=== PATIENT | female | born 1960 | race Caucasian/White ===

== ENCOUNTER → 2021-11-13 11:16 | Outpatient (CLI) | payer OTHER, SELFPAY | PROVIDERS: PCP Family Medicine; Visit Provider Ophthalmology | DX: Z01.812 Encounter for preprocedural laboratory examination (principal); Z20.822 Contact with and (suspected) exposure to COVID-19 | CPT/HCPCS: C9803; U0003; U0005 ==

== ENCOUNTER 2021-11-16 09:08 | Day surgery (SDC) | payer OTHER, SELFPAY ==
[2021-11-16] VITALS (8 sets, daily range): BP systolic 89–125; BP diastolic 47–77; PULSE 50–57; RESP 16; TEMP 36.6; O2SAT 96–100
== END 2021-11-16 11:40 | disposition home or self-care (01) ==
LOC: OR 09:12
PROVIDERS: PCP Family Medicine; Visit Provider Ophthalmology
PROC: (CPT 66982; principal; 2021-11-16 12:00)
DX: H25.811 Combined forms of age-related cataract, right eye (principal)
CPT/HCPCS: 66982; V2632

== ENCOUNTER → 2021-11-27 11:29 | Outpatient (CLI) | payer OTHER, SELFPAY | PROVIDERS: PCP Family Medicine; Visit Provider Ophthalmology | DX: Z01.812 Encounter for preprocedural laboratory examination (principal); Z20.822 Contact with and (suspected) exposure to COVID-19 | CPT/HCPCS: C9803; U0003; U0005 ==

== ENCOUNTER → 2021-12-27 07:00 | Outpatient (CLI) | payer OTHER, SELFPAY ==
[2021-12-27 20:54] LABS: Alanine Aminotransferase 14 U/L (12-78); Albumin Level 3.8 g/dl (3.5-5.0); Albumin/Globulin Ratio 1.5 (1.1-1.8); Alkaline Phosphatase 107 U/L (38-126); Anion Gap 16.9 mEq/L (5-15); Aspartate Amino Transferase 25 U/L (14-36); Blood Urea Nitrogen 9 mg/dl (7-17); Calcium 8.7 mg/dl (8.4-10.2); Carbon Dioxide 24 mmol/L (22.0-30.0); Chloride 101 mmol/L (98-107); Chol/HDL Ratio 5.1 (1-3.5); Cholesterol 255 mg/dl (140-200); Estimated Glomerular Filt Rate 73 ml/min (>60); GFR (African American) 89 ML/MIN (>60); Globulin 2.5 g/dL (1.3-3.2); Glucose 123 mg/dl (74-100); HDL Cholesterol 50 mg/dl (40-60); Potassium 3.9 mmoL/L (3.5-5.1); Sodium 138 mmol/L (136-145); Total Protein,Serum 6.3 g/dl (6.3-8.2); Triglycerides 354 mg/dl (30-150); VLDL Cholesterol 71 mg/dL (0-40)
[2021-12-27 21:01] LABS: Bilirubin,Total < 0.1 mg/dl (0.2-1.3)
[2021-12-27 21:10] LABS: Direct LDL Cholesterol 138.84 mg/dL (100-129)
[2021-12-27 21:35] LABS: Thyroid Stimulating Hormone 0.63 uIU/mL (0.465-4.68)
== END ==
PROVIDERS: PCP Family Medicine; Visit Provider Family Medicine
DX: E78.5 Hyperlipidemia, unspecified (principal); I10 Essential (primary) hypertension; E55.9 Vitamin D deficiency, unspecified
CPT/HCPCS: 80053; 80061; 82306; 84443

== ENCOUNTER → 2022-01-03 11:09 | Outpatient (CLI) | payer OTHER, SELFPAY | PROVIDERS: PCP Family Medicine; Visit Provider Ophthalmology | DX: Z01.812 Encounter for preprocedural laboratory examination (principal); Z20.822 Contact with and (suspected) exposure to COVID-19; H25.012 Cortical age-related cataract, left eye | CPT/HCPCS: C9803; U0003; U0005 ==

== ENCOUNTER 2022-01-04 10:07 | Day surgery (SDC) | payer OTHER, SELFPAY ==
[2021-11-24 10:49] VITALS: BMI 31.7
[2022-01-04] VITALS (7 sets, daily range): BP systolic 107–166; BP diastolic 62–80; PULSE 53–67; RESP 16–18; TEMP 36.3–36.4; O2SAT 97–100
== END 2022-01-04 13:18 | disposition home or self-care (01) ==
LOC: OR 10:09
PROVIDERS: PCP Family Medicine; Visit Provider Ophthalmology
PROC: (CPT 66984; principal; 2022-01-04 14:30)
DX: H26.9 Unspecified cataract (principal); Z79.899 Other long term (current) drug therapy
CPT/HCPCS: 66984; V2632

== ENCOUNTER → 2022-01-05 13:02 | Outpatient (CLI) | payer OTHER, SELFPAY ==
--- NOTE | 2022-01-05 13:06 | MM_ITS ---
PROCEDURE INFORMATION: Exam: MG Bilateral Screening 3D Mammography Exam date and time: 01/05/2022 1:00 PM Age: 61 years old Clinical indication: Screening examination TECHNIQUE: Imaging protocol: Bilateral Screening tomosynthesis and 2D mammography including computer-aided detection (CAD) when performed. COMPARISON: MG MAMMOGRAM SCREENING BILAT 08/07/2020 8:36 AM FINDINGS: MAMMOGRAPHY: Breast composition: The breasts are almost entirely fatty. Mass: None. Architectural distortion: None. Calcifications: No suspicious calcifications. Asymmetric density: None. Skin thickening: None. Axillary adenopathy: None. IMPRESSION: No mammographic evidence of malignancy. Annual screening is recommended unless otherwise clinically indicated. ASSESSMENT: BI-RADS Category 1: Negative
== END ==
PROVIDERS: PCP Family Medicine; Visit Provider Family Medicine
DX: Z12.31 Encounter for screening mammogram for malignant neoplasm of breast (principal)
CPT/HCPCS: 77063; 77067

== ENCOUNTER → 2022-02-16 12:10 | Outpatient (CLI) | payer OTHER, SELFPAY ==
[2022-02-16 18:49] LABS: Adenovirus,PCR Not Detected (NotDetected); Bordetella Pertussis Not Detected (NotDetected); Chlamydophila Pneumoniae, PCR Not Detected (NotDetected); Coronavirus 19, PCR Not Detected (NotDetected); Coronavirus 229E Not Detected (NotDetected); Coronavirus NL63 Not Detected (NotDetected); Coronavirus OC43 Not Detected (NotDetected); Coronovirus HKU1,PCR Not Detected (NotDetected); Human Metapneumovirus Not Detected (NotDetected); Influenza A, PCR Not Detected (NotDetected); Influenza AH1, 2009 Not Detected (NotDetected); Influenza AH1, PCR Not Detected (NotDetected); Influenza AH3,PCR Not Detected (NotDetected); Influenza B, PCR Not Detected (NotDetected); Mycoplasma Pneumoniae, PCR Not Detected (NotDetected); Parainfluenza 1, PCR Not Detected (NotDetected); Parainfluenza 2, PCR Not Detected (NotDetected); Parainfluenza 3, PCR Not Detected (NotDetected); Parainfluenza 4, PCR Not Detected (NotDetected); Respiratory Syncytial Virus Not Detected (NotDetected); Rhinovirus/Enterovirus Not Detected (NotDetected)
== END ==
PROVIDERS: PCP Nurse Practitioner; Visit Provider Nurse Practitioner
DX: J06.9 Acute upper respiratory infection, unspecified (principal)
CPT/HCPCS: 87581; 87632; 87798; C9803; U0003; U0005

== ENCOUNTER → 2022-04-08 12:02 | Outpatient (CLI) | payer OTHER, SELFPAY ==
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
== END ==
PROVIDERS: PCP Nurse Practitioner; Visit Provider Nurse Practitioner
DX: R07.81 Pleurodynia (principal); M25.512 Pain in left shoulder; V89.2XXA Person injured in unspecified motor-vehicle accident, traffic, initial encounter
CPT/HCPCS: 71101; 73030

== ENCOUNTER → 2022-07-20 09:32 | Outpatient (CLI) | payer OTHER, SELFPAY ==
--- NOTE | 2022-07-20 09:40 | XR_ITS ---
FINAL REPORT CLINICAL HISTORY: shoulder pain FINDINGS: Right shoulder Four views were obtained. There is no acute fracture or dislocation. There are mild degenerative changes of the acromioclavicular and glenohumeral joints. No soft tissue abnormality is identified. IMPRESSION: Mild degenerative changes. Reviewed, Interpreted and Dictated by Topher Franco III, MD Transcribed by Ana Dewey Authenticated and [facility]
== END ==
PROVIDERS: PCP Nurse Practitioner; Visit Provider Physician Assistant Surgical
DX: M25.511 Pain in right shoulder (principal)
CPT/HCPCS: 73030

== ENCOUNTER 2022-07-20 11:43 | Outpatient (RCR) | payer OTHER, SELFPAY | END 2022-07-20 13:00 | disposition home or self-care (01) | LOC: OT 11:43 | PROVIDERS: Visit Provider Orthopaedic Surgery | DX: G56.01 Carpal tunnel syndrome, right upper limb (principal) | CPT/HCPCS: 97763 ==

== ENCOUNTER → 2022-07-29 08:00 | Outpatient (CLI) | payer OTHER, SELFPAY ==
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
--- NOTE | 2022-07-29 08:08 | IR_ITS ---
FINAL REPORT CLINICAL HISTORY: Shoulder pain, ft 0:31 FINDINGS: RIGHT SHOULDER INJECTION FOR MRI ARTHROGRAM HISTORY: . Right shoulder pain. PROCEDURE: After informed consent was obtained, a time-out was performed. Utilizing local anesthesia and sterile technique, with direct fluoroscopic guidance, access to the joint was obtained . A small amount of contrast was injected to confirm needle tip location. Additional gadolinium contrast was injected. IMPRESSION: Status post injection for MRI arthrogram without immediate complication. Please see MRI report. FLUOROSCOPY TIME: 31 seconds. 2 radiographs were obtained. Films reviewed , interpreted and dictated by Dr. Franco. Transcribed by Sae Jc PA-C. Reviewed, Interpreted and Dictated by Topher Franco III, MD Transcribed by DAYANARA Lang Authenticated and . [facility]
== END ==
PROVIDERS: PCP Nurse Practitioner; Visit Provider Physician Assistant Surgical
DX: M25.511 Pain in right shoulder (principal)
CPT/HCPCS: 73040; 73222; A9576; Q9967

== ENCOUNTER → 2022-08-17 10:35 | Outpatient (CLI) | payer OTHER, SELFPAY ==
--- NOTE | 2022-08-17 10:45 | ECG_ITS ---
APPROVED REPORT Exam: Resting ECG HR:64 bpm ECG Measurements Heart Rate 64 AXES RI 170 P 20 QRSd 94 QRS 10 QT 399 T -1 QTc 409 Conclusion SINUS RHYTHM NORMAL ECG UNCONFIRMED REPORT Electronically signed by : Julien Conroy MD 08/17/2022 21:15:29
--- NOTE | 2022-08-17 11:00 | XR_ITS ---
FINAL REPORT CLINICAL HISTORY: pre op for upcoming rt shoulder sx. Hx of high cholesterol. Sx to repair supraspinatus tendon and labral degeneration. Patient unable to fully raise right arm for lateral image. COMPARISON: 04/08/2022 FINDINGS: There is no evidence of effusion or other pleural disease. The mediastinum has a normal appearance. The cardiac silhouette is unremarkable. IMPRESSION: Unremarkable chest exam. Reviewed, Interpreted and Dictated by Shantanu Boles MD Transcribed by Ana Dewey Authenticated and [facility]
[2022-08-17 11:33] LABS: Basophils % 0.3 % (0.1-2.0); Eosinophils # 0.3 K/mm3 (0.0-0.4); Hematocrit 37.3 % (37.0-47.0); Hemoglobin 12.2 g/dL (12.2-16.2); Lymphocytes # 1.2 K/mm3 (0.7-4.5); Lymphocytes % 13.5 % (10-50); Mean Corpuscular HGB Conc 32.8 g/dL (31.8-35.4); Mean Corpuscular Hemoglobin 29.2 pg (27.0-31.2); Mean Corpuscular Volume 89.1 fl (81-99); Mean Platelet Volume 7.1 fl (7.4-10.4); Monocytes # 0.5 K/mm3 (0.1-1.0); Monocytes % 5.3 % (1.7-9.3); Neutrophils # 6.8 K/mm3 (1.8-7.8); Neutrophils % 77.9 % (37.0-80.0); Platelet Count 199 K/mm3 (142-424); Red Blood Count 4.19 M/mm3 (4.20-5.40); Red Cell Distribution Width 14.2 % (11.5-17.5); White Blood Count 8.8 K/mm3 (4.8-10.8)
[2022-08-17 11:57] LABS: Alanine Aminotransferase 17 U/L (12-78); Albumin Level 3.4 g/dl (3.5-5.0); Albumin/Globulin Ratio 1.5 (1.1-1.8); Alkaline Phosphatase 82 U/L (38-126); Anion Gap 14.1 mEq/L (5-15); Aspartate Amino Transferase 26 U/L (14-36); Bilirubin,Total 0.6 mg/dl (0.2-1.3); Blood Urea Nitrogen 9 mg/dl (7-17); Calcium 8.4 mg/dl (8.4-10.2); Carbon Dioxide 30 mmol/L (22.0-30.0); Chloride 98 mmol/L (98-107); Estimated Glomerular Filt Rate 73 ml/min (>60); GFR (African American) 89 ML/MIN (>60); Globulin 2.3 g/dL (1.3-3.2); Glucose 76 mg/dl (74-100); Potassium 4.1 mmoL/L (3.5-5.1); Sodium 138 mmol/L (136-145); Total Protein,Serum 5.7 g/dl (6.3-8.2)
== END ==
PROVIDERS: PCP Nurse Practitioner; Visit Provider Orthopaedic Surgery
DX: Z01.818 Encounter for other preprocedural examination (principal); M25.511 Pain in right shoulder
CPT/HCPCS: 36415; 71046; 80053; 85025; 93005

== ENCOUNTER 2022-08-22 10:06 | Day surgery (SDC) | payer OTHER, SELFPAY ==
[2022-08-19 16:56] VITALS: BMI 35.4
[2022-08-22] VITALS (10 sets, daily range): BP systolic 110–153; BP diastolic 53–96; PULSE 57–71; RESP 14–18; TEMP 36.1–43; O2SAT 92–96
--- NOTE | 2022-08-22 12:32 | EXP.ANES.CKL ---
[facility] Disclaimer: The information contained in this section may have been updated after the patient was seen, as this information can be updated by other users. Medical History Anxiety Closed traumatic nondisplaced fracture of rib of left side with routine healing Depression Head ache History of cataract Surgical History History of bariatric surgery History of History of cataract removal with insertion of prosthetic lens History of cholecystectomy History of tubal ligation Family History Other Cancer Coronary artery disease Heart attack Hyperlipidemia Hypertension Social History Smoking Status: Never smoker second hand exposure: Yes alcohol intake: former substance use type: crack/cocaine current occupational status: employed Travel in the last 8 weeks: None household members: friend(s) and other housing: house current occupational exposures/hazards: No caffeine: Yes [facility] Anesthesia Checklist Patient Identification Patient Identification: Arm Band Structural Data Admitted From: Home Planned Operative Procedure/s: Right Shoulder Arthroscopy, Rotator Cuff Repair Consent for Planned Operative Procedure(s) Verified: Yes Verified Documents: Surgical Consent and History and Physical NPO Status Verified Time NPO: 00:00 Additional verifications Anesthesia Reactions: No Hx Blood Transfusions: No Blood Transfusion Reaction: No Airway Assessment C-Spine Mobility Assessed: Yes TMJ Mobility Assessed: Yes Dentition: Good Dentition Neurological Assessment Level of Consciousness: Awake and Alert Anesthesia Plan Anesthesia Risk discussed: Yes Anesthesia Plan: Verified ASA Class: III Anesthesia Type: General w/block (Right Interscalene Nerve Block. Risks/benefits explained. Pt verbalized understanding)
--- NOTE | 2022-08-22 13:48 | P.OP_ITS ---
Date of procedure: 08/22/22 Pre-op Diagnosis:: Right shoulder partial-thickness rotator cuff tear impingement syndrome Post-op Diagnosis:: Right shoulder partial-thickness rotator cuff tear and impingement syndrome with degenerative fraying anterior labrum. Loose faiza cartilage humeral head. Intra-articular loose body cartilage humeral head. Procedure performed:: 1. Right shoulder arthroscopy with extensive debridement anterior labrum humeral cartilage and partial-thickness rotator cuff tear 2. Right shoulder arthroscopy with subacromial decompression Surgeon:: Mo Thompson DO Anesthesia: GETA and regional Estimated blood loss (mL): 0 Operative findings:: Partial-thickness rotator cuff tear impingement degenerative anterior labral fraying and tear with intra-articular loose body humeral cartilage and loose flap humeral cartilage. Operative note:: Patient was identified preoperatively. Right shoulder was marked with a yes and my initials. Underwent a block with anesthesia. Transferred operative suite. Placed upon the operating bed. General anesthesia administered airway secured. Then placed in a lateral position with a beanbag with all bony prominences well- padded. Right arm was placed in the arm wetzel and prepped and draped in normal sterile fashion. Once prepped and draped final operative timeout performed to identify proper patient procedure and extremity. Everyone involved the case agreed. No counter indications to beginning. Did receive preoperative antibiotics. Marking pen was used to skyler the bony landmarks of the shoulder and standard portal sites. Skin F was used incise posterior viewing portal and blunt with trocar was placed in the glenohumeral joint. This was exchanged with a camera. I pinned attention directly to the anterior aspect of the shoulder where the anterior working portal was made just above the subscapularis tendon this was exchanged with a purple working cannula. I extensively probed the intra- articular aspect of the shoulder. The biceps anchor was intact. The biceps itself was intact. There is anterior tearing and fraying of the labrum which was degenerative in nature. This was debrided with a sucker shaver to stable rim. There is also evidence of intra-articular loose body which was removed and debrided through the sucker shaver and there was a small area of fraying cartilage on the humeral head cartilage which was debrided to remove the loose faiza cartilage on the humeral head. I interrogated the undersurface of the rotator cuff that showed no full-thickness tearing. Placed a water bubble and the intra-articular aspect of the shoulder and brought the attention to the subacromial space. Upon entering the subacromial space prior to placing suction there was no return on water from the water communicating from the intra-articular aspect into the subacromial space. Within the subacromial space there was significant bursitis downsloping of the acromion as well. 5.5 mm barrel bur was used in a standard fashion to plane the acromion to perform subacromial decompression. Once this was complete attention was brought back to the rotator cuff. Rotator cuff was then interrogated and probed there is no full-thickness component of the rotator cuff tear there was fraying of the rotator cuff which was debrided with a sucker shaver. Once this was complete no further pathology was seen. Camera was removed the joint was drained. Skin was closed with nylon stitches sterile dressing placed placed in patient placed in a sling awakened from anesthesia taken recovery stable condition. Condition: stable Disposition: PACU Complications:: None apparent
--- NOTE | 2022-08-22 14:07 | EXP.ANES.I ---
[facility] Anesthesia Record Part I Anesthesia Record I Intake, IV Amount: 1,000 Estimated blood loss (mL): 20 Urine output (mL): 0 Blood Products used (#): none Blood Pressure: 143/87 SaO2: 94 Pulse Rate: 70 Respiratory Rate: 14 Temperature: 97.5 F Patient is:: Drowsy and Stable Stable to PACU at:: 13:58
--- NOTE | 2022-08-24 08:29 | P.PNANES_ITS ---
[facility] Anesthesia Record Part II Anesthesia Record Part II Discharge Time: 14:28 Destination: Surgical Day Care (OP Surgery) PACU nurse assessment reviewed?: Yes Patient Condition:: Good Anesthesia Complications:: None Swallowing reflex intact?: Yes Cyanosis?: No Blood Pressure: 127/53 Pulse Rate: 68 Temperature: 97 F Mental Status: Alert & Oriented Pain level:: 0 Nausea and/or vomitting:: None Intake, IV Amount: 0
[2022-08-24 08:30] VITALS: BP 127/53; PULSE 68; TEMP 36.1
== END 2022-08-22 15:02 | disposition home or self-care (01) ==
PROVIDERS: PCP Nurse Practitioner; Visit Provider Orthopaedic Surgery
PROC: (CPT 29827; principal; 2022-08-22 11:45)
DX: M75.111 Incomplete rotator cuff tear or rupture of right shoulder, not specified as traumatic (principal); M75.41 Impingement syndrome of right shoulder; Z79.899 Other long term (current) drug therapy
CPT/HCPCS: 29827; 29826; 96374; J2405

== ENCOUNTER 2022-10-07 10:00 | Outpatient (RCR) | payer OTHER, SELFPAY ==
--- NOTE | 2022-09-14 10:08 | HMH.OTOPEV ---
OT Inpatient Evaluation Rehab OT Outpatient Eval Start: 09/14/22 09:51 Freq: Status: Active Protocol: Document 09/14/22 09:52 ADWOAMARIA LUISA (Rec: 09/14/22 10:05 CRISTINE [id number]) E-signed By Quyen Cueto, OT Outpatient Therapy Subjective History Subjective History 62 year old female referred to skilled OP OT services for R shld RCR: Post-op dx: right shld partial-thickness rotator cuff tear and impingement syndrome with degerative fraying anterior labrum. [place] faiza cartilage humeral head. Intra-articular loose body cartilage humeral head. Procedure performed: Right shld arthroscopy with extensive debridement anterior labrum humeral cartilage and partial-thickness rotator cuff tear. Right shld arthroscopy with subacromial decompression . Patient had operation on with being 3 weeks out this week. Chief Complaint Pain,Weakness Symptom Type Ache Symptoms Relieved By Nothing Symptoms Aggravated By Physical Activity Prior Functional Limitations None Current Functional Limitations Reaching,Lifting,Recreation Activity Symptom Description Constant and Continuous Level of pain today (0-10) 0 Pain scale - at its best (0-10) 0 Pain scale - at its worst (0-10) 5 Shoulder/Elbow Eval Shoulder Objective Measurements Shoulder ROM Right Shoulder Abduction Active Range of 50 Motion (degrees) Shoulder Flexion Active Range of Motion 90 (degrees) Query Text: Shoulder External Rotation Active Range 0 of Motion (degrees) Shoulder Internal Rotation Active Range 0 of Motion (degrees) Shoulder MMT Shoulder Abduction Strength Grade 3- Fair- Shoulder Extension Strength Grade 3- Fair- Shoulder Flexion Strength Grade 3- Fair- Shoulder Horizontal Abduction Strength 3- Fair- Grade Shoulder Horizontal Adduction Strength 3- Fair- Grade Infraspinatus/Teres Minor Strength Grade 3- Fair- Shoulder External Rotation Strength 3- Fair- Grade Shoulder Internal Rotation Strength 3- Fair- Grade Elbow Objective Measurements OT Outpatient Assessment
== END 2022-10-07 10:05 | disposition home or self-care (01) ==
LOC: OT 10:00
PROVIDERS: PCP Nurse Practitioner; Visit Provider Orthopaedic Surgery
DX: M75.101 Unspecified rotator cuff tear or rupture of right shoulder, not specified as traumatic (principal); M25.511 Pain in right shoulder
CPT/HCPCS: 97010; 97014; 97110; 97140; 97165; 97530; G0283

== ENCOUNTER → 2022-10-13 12:20 | Outpatient (CLI) | payer OTHER, SELFPAY ==
[2022-10-13 18:48] LABS: Alanine Aminotransferase 22 U/L (12-78); Albumin Level 4.3 g/dl (3.5-5.0); Albumin/Globulin Ratio 1.6 (1.1-1.8); Alkaline Phosphatase 97 U/L (38-126); Anion Gap 12.5 mEq/L (5-15); Aspartate Amino Transferase 38 U/L (14-36); Bilirubin,Total 0.7 mg/dl (0.2-1.3); Blood Urea Nitrogen 8 mg/dl (7-17); Calcium 8.9 mg/dl (8.4-10.2); Carbon Dioxide 28 mmol/L (22.0-30.0); Chloride 106 mmol/L (98-107); Chol/HDL Ratio 2.5 (1-3.5); Cholesterol 135 mg/dl (140-200); Estimated Glomerular Filt Rate 57 ml/min (>60); GFR (African American) 68 ML/MIN (>60); Globulin 2.7 g/dL (1.3-3.2); Glucose 90 mg/dl (74-100); HDL Cholesterol 53 mg/dl (40-60); Potassium 4.5 mmoL/L (3.5-5.1); Sodium 142 mmol/L (136-145); Triglycerides 106 mg/dl (30-150); VLDL Cholesterol 21 mg/dL (0-40)
[2022-10-13 18:52] LABS: Microalbumin/Creatinine Ratio 5.9
[2022-10-13 18:56] LABS: Creatinine,Urine Random 282 mg/dL (Not Estab.)
[2022-10-13 18:59] LABS: Direct LDL Cholesterol 66.48 mg/dL (100-129)
[2022-10-13 19:05] LABS: 25-OH Vitamin D, Total 17.7 ng/mL (30-100)
[2022-10-13 19:37] LABS: Vitamin B12 273 pg/mL (239-931)
== END ==
PROVIDERS: PCP Nurse Practitioner; Visit Provider Nurse Practitioner
DX: E78.5 Hyperlipidemia, unspecified (principal); E55.9 Vitamin D deficiency, unspecified; R77.0 Abnormality of albumin
CPT/HCPCS: 80053; 80061; 82043; 82306; 82570; 82607

== ENCOUNTER → 2022-11-10 23:33 | Outpatient (CLI) | payer OTHER, SELFPAY | PROVIDERS: PCP Nurse Practitioner; Visit Provider Nurse Practitioner | DX: Z09 Encounter for follow-up examination after completed treatment for conditions other than malignant neoplasm (principal); N39.0 Urinary tract infection, site not specified; B96.1 Klebsiella pneumoniae [K. pneumoniae] as the cause of diseases classified elsewhere | CPT/HCPCS: 87086; 87088; 87186 ==

== ENCOUNTER → 2022-12-07 15:30 | Outpatient (CLI) | payer OTHER, SELFPAY ==
[2022-12-07 16:33] LABS: Erythrocyte Sedimentation Rate QNS mm/hr (0-30)
[2022-12-07 17:38] LABS: Thyroid Stimulating Hormone 0.78 uIU/mL (0.465-4.68)
[2022-12-07 18:31] LABS: Vitamin B12 947 pg/mL (239-931)
[2022-12-09 07:12] LABS: HIV Screen 4th Generation wRfx Non Reactive (Non Reactive)
[2022-12-09 18:28] LABS: Antiparietal Cell Antibody 4.4 Units (0.0-20.0)
[2022-12-12 17:08] LABS: HBsAg Screen Negative (Negative); HCV Ab Reactive (Non Reactive); Hep A Ab, IGM Negative (Negative); Hep B Core Ab, IgM Negative (Negative)
[2022-12-14 16:13] LABS: Intrinsic Factor Abs, Serum 1.1 AU/mL (0.0-1.1)
== END ==
PROVIDERS: PCP Nurse Practitioner; Visit Provider Nurse Practitioner Family
DX: R42 Dizziness and giddiness (principal); F14.91 Cocaine use, unspecified, in remission; F19.91 Other psychoactive substance use, unspecified, in remission; H93.19 Tinnitus, unspecified ear; R26.89 Other abnormalities of gait and mobility; E66.9 Obesity, unspecified; Z68.36 Body mass index [BMI] 36.0-36.9, adult; R79.89 Other specified abnormal findings of blood chemistry; E53.8 Deficiency of other specified B group vitamins; Z11.4 Encounter for screening for human immunodeficiency virus [HIV]
CPT/HCPCS: 36415; 80074; 82607; 83516; 84443; 86140; 86340; 86703; G0432

== ENCOUNTER → 2022-12-21 12:24 | Outpatient (CLI) | payer OTHER, SELFPAY ==
--- NOTE | 2022-12-21 12:24 | MR_ITS ---
FINAL REPORT CLINICAL HISTORY: DIZZINESS, IMBALANCE COMPARISON: None FINDINGS: Multiple projection images of the neck arterial vasculature were obtained without contrast. The raw data images were also reviewed. This exam is severely limited by artifact. There are portions of the distal right common carotid artery and the left internal carotid artery which are not visualized. There is no significant stenosis in the visualized segments, but cannot exclude any areas of stenosis in the nonvisualized segments. The vertebral arteries appear patent bilaterally in the cervical portion, although once again there are segments that are very difficult to visualize adequately. IMPRESSION: This exam is extremely limited by artifact, and there are segments of major vessels that cannot be visualized, including portions of the distal right common carotid artery and the proximal left internal carotid artery. CT angiography might be helpful for further evaluation if clinically indicated. Reviewed, Interpreted and Dictated by Topher Franco III, MD Transcribed by Amanda Da Silva Authenticated and [facility]
--- NOTE | 2022-12-21 12:24 | MR_ITS ---
FINAL REPORT CLINICAL HISTORY: DIZZINESS, IMBALANCE COMPARISON: None FINDINGS: Multiple projection images of the brain arterial vasculature were obtained without contrast. The raw data images were also reviewed. There is severe degradation by motion artifact. Portions of the distal internal carotid arteries and vertebral arteries are not visualized. No gross abnormalities of the intracranial vessels are identified. IMPRESSION: Severe degradation by motion artifact as described above. Correlation with CT angiography of the intracranial vessels might be helpful if clinically indicated. Reviewed, Interpreted and Dictated by Topher Franco III, MD Transcribed by Amanda Da Silva Authenticated and [facility]
--- NOTE | 2022-12-21 12:24 | MR_ITS ---
FINAL REPORT CLINICAL HISTORY: DIZZINESS, IMBALANCE COMPARISON: None FINDINGS: Multiplanar MR imaging of the brain was performed without and with contrast. There is no evidence of intracranial hemorrhage or mass. No abnormal extra-axial fluid collection is seen. The ventricular size is within normal limits. There is no evidence of shift of the midline structures. The posterior fossa and brainstem have an unremarkable appearance. No area of abnormal restricted diffusion is identified. No abnormal contrast enhancement is seen. Normal major vessel vascular flow voids are noted. IMPRESSION: No acute intracranial abnormality identified. Reviewed, Interpreted and Dictated by Topher Franco III, MD Transcribed by Amanda Da Silva Authenticated and . [facility]
[2022-12-21 13:12] LABS: Blood Urea Nitrogen 7 mg/dl (7-17); Estimated Glomerular Filt Rate 64 ml/min (>60); GFR (African American) 77 ML/MIN (>60)
== END ==
PROVIDERS: PCP Nurse Practitioner; Visit Provider Nurse Practitioner Family
DX: R42 Dizziness and giddiness (principal); R26.89 Other abnormalities of gait and mobility; F14.91 Cocaine use, unspecified, in remission; H93.19 Tinnitus, unspecified ear
CPT/HCPCS: 36415; 70544; 70547; 70553; 82565; 84520; A9576

== ENCOUNTER → 2023-01-02 12:38 | Outpatient (CLI) | payer OTHER, SELFPAY ==
--- NOTE | 2023-01-02 13:20 | CA_ITS ---
FINAL REPORT TECHNIQUE: Soto scale, color and spectral doppler images of the bilateral carotid arteries were obtained. CLINICAL HISTORY: DIZZINESS,HTN COMPARISON: None FINDINGS: Peak systolic velocity in the right internal carotid artery is 78 cm/sec. The internal carotid to common carotid artery ratio is 1.46. There is no significant carotid artery stenosis and no significant plaque formation. The right vertebral artery is normal in direction. Peak systolic velocity in the left internal carotid artery is 96.6 cm/sec. The internal carotid to common carotid artery ratio is 1.9. There is no significant carotid artery stenosis and no significant plaque formation. The left vertebral artery is normal in direction. IMPRESSION: No ultrasound evidence of hemodynamically significant carotid artery stenosis. Normal peak systolic velocities and normal internal to common carotid artery ratios bilaterally. Antegrade flow in the vertebral arteries bilaterally. Reviewed, Interpreted and Dictated by Elissa Richard MD Transcribed by Amanda Da Silva Authenticated and [facility]
== END ==
PROVIDERS: PCP Nurse Practitioner; Visit Provider Nurse Practitioner
DX: R93.89 Abnormal findings on diagnostic imaging of other specified body structures (principal); R42 Dizziness and giddiness
CPT/HCPCS: 93880

== ENCOUNTER 2023-01-04 08:38 | Day surgery (SDC) | payer OTHER, SELFPAY ==
[2022-12-14 15:45] VITALS: BMI 36.1
[2023-01-04] VITALS (7 sets, daily range): BP systolic 77–169; BP diastolic 47–80; PULSE 48–67; RESP 14–18; TEMP 36.2–36.6; O2SAT 94–98
--- NOTE | 2023-01-04 10:01 | P.PNANES_ITS ---
[facility] Disclaimer: The information contained in this section may have been updated after the patient was seen, as this information can be updated by other users. Medical History Anxiety Closed traumatic nondisplaced fracture of rib of left side with routine healing Depression Fall at home Head ache History of cataract Hyperlipidemia Postmenopausal Screening for malignant neoplasm of breast Screening for osteoporosis Unsteady gait when walking Vitamin D deficiency Surgical History History of bariatric surgery History of History of cataract removal with insertion of prosthetic lens History of cholecystectomy History of tubal ligation Hx of shoulder surgery Family History Other Cancer Coronary artery disease Heart attack Hyperlipidemia Hypertension Social History Smoking Status: Never smoker second hand exposure: Yes alcohol intake: current substance use type: crack/cocaine current occupational status: unemployed Travel in the last 8 weeks: None household members: family housing: house lives independently: No current occupational exposures/hazards: No caffeine: Yes [facility] Anesthesia Checklist Patient Identification Patient Identification: Arm Band and Verbal (Name & ) Structural Data Admitted From: Home Planned Operative Procedure/s: EGD/Colonoscopy Consent for Planned Operative Procedure(s) Verified: Yes NPO Status Verified Time NPO: 00:00 Additional verifications Anesthesia Reactions: No Hx Blood Transfusions: No Blood Transfusion Reaction: No Airway Assessment Mallampati Score:: Class III C-Spine Mobility Assessed: Yes TMJ Mobility Assessed: Yes Dentition: Good Dentition Neurological Assessment Level of Consciousness: Awake Hx Seizures: No Numbness or tingling in extremities: No Anesthesia Plan Anesthesia Risk discussed: Yes Anesthesia Plan: Verified ASA Class: II Anesthesia Type: MAC
--- NOTE | 2023-01-04 10:48 | HMH.SCOPE ---
Procedure: Date: 01/04/23 Patient Date of :: 1960 Procedure Performed:: Colonoscopy Indications:: Colorectal cancer screening Performing Provider:: Colten Lee MD Referring Provider:: Mary Macdonald APRN Sedation:: See RN records Procedure:: After placing the patient in the left lateral decubitus position, the colonoscopy was gently inserted into the rectum and under direct visualization advanced to the cecum which was identified by transillumination in the right lower quadrant, identification of the ileocecal valve, appendiceal orifice, and cecal strap. Color, texture, mucosa, and anatomy of the colon were carefully examined with the scope. Findings:: Anal canal: normal Rectum: normal Sigmoid colon: Fair perparation Descending colon: Fair preparation Splenic flexure: normal Transverse colon: normal without polyps or inflammatory changes Hepatic flexure: Fair preparation Ascending colon: Fair to poor preparation Cecum: Fair to poor preparation Terminal ileum: not visualized Impression: Fair to poor bowel preparation in proximal colon Recommendations:: Recommend to repeat colonoscopy in 1 year with 2 days liquid diet Complications:: none Estimated blood obtained (mL): 0 Colonoscopy Component Colonoscopy Component Was a colonoscopy performed during today's procedure?: Yes Recommended follow up colonoscopy of at least 10 years?: Yes
--- NOTE | 2023-01-04 10:51 | HMH.SCOPE ---
Procedure: Date: 01/04/23 Patient Date of :: 1960 Procedure Performed:: EGD Indications:: Abdominal pain and GERD Performing Provider:: Colten Lee MD Referring Provider:: Mary Macdonald APRN Sedation:: See RN records Procedure:: After placing the patient in the left lateral decubitus position, the colonoscopy was gently inserted into the rectum and under direct visualization advanced to the cecum which was identified by transillumination in the right lower quadrant, identification of the ileocecal valve, appendiceal orifice, and cecal strap. Color, texture, mucosa, and anatomy of the colon were carefully examined with the scope. Findings:: Oropharynx: normal Esophagus: normal EG Junction: Measured at 36 cm Cardia: Hiatal hernia measuring approximately 7-8 cm in size Fundus: Retained food Body: Retained food. gastritis. Biopsies obtained Antrum: Linear erythema. Boipsies obtained Duodenal bulb: normal Duodenum (second and third portion): normal Impression: Hiatal hernia Gastritis Retained food in stomach Recommendations:: Await pathology results Consider 4 hour gastric emptying study Complications:: None Estimated blood obtained (mL): 0 Colonoscopy Component Colonoscopy Component Was a colonoscopy performed during today's procedure?: No
--- NOTE | 2023-01-04 11:23 | SUR.PHASEII ---
1049-pt arrived in postop with oral airway and simple mask on 3L/O2 1119-removed oral airway and mask- to RA- patient tolerated well
[2023-01-05 11:39] VITALS: BP 113/60; PULSE 47; RESP 18; O2SAT 97
[2023-01-05 11:45] VITALS: BP 115/62; PULSE 52; RESP 18; O2SAT 97
== END 2023-01-04 11:45 | disposition home health service (06) ==
PROVIDERS: PCP Nurse Practitioner; Visit Provider Internal Medicine
PROC: 0DJ08ZZ Inspection of Upper Intestinal Tract, Via Natural or Artificial Opening Endoscopic (ICD-10-PCS; CPT 43235; principal; 2023-01-04 10:00)
DX: Z12.11 Encounter for screening for malignant neoplasm of colon (principal); R10.9 Unspecified abdominal pain; K21.9 Gastro-esophageal reflux disease without esophagitis; K44.9 Diaphragmatic hernia without obstruction or gangrene; K29.50 Unspecified chronic gastritis without bleeding
CPT/HCPCS: 45378; 43239; J2704

== ENCOUNTER → 2023-01-05 23:09 | Outpatient (CLI) | payer OTHER, SELFPAY ==
[2023-01-05 18:27] LABS: Alanine Aminotransferase 18 U/L (12-78); Albumin Level 4.1 g/dl (3.5-5.0); Albumin/Globulin Ratio 1.4 (1.1-1.8); Alkaline Phosphatase 95 U/L (38-126); Anion Gap 10.1 mEq/L (5-15); Aspartate Amino Transferase 31 U/L (14-36); Bilirubin,Total 0.5 mg/dl (0.2-1.3); Blood Urea Nitrogen 10 mg/dl (7-17); Calcium 9.1 mg/dl (8.4-10.2); Carbon Dioxide 32 mmol/L (22.0-30.0); Chloride 102 mmol/L (98-107); Estimated Glomerular Filt Rate 57 ml/min (>60); GFR (African American) 68 ML/MIN (>60); Glucose 90 mg/dl (74-100); Potassium 4.1 mmoL/L (3.5-5.1); Sodium 140 mmol/L (136-145); Total Protein,Serum 7.1 g/dl (6.3-8.2)
[2023-01-05 18:44] LABS: 25-OH Vitamin D, Total 36.4 ng/mL (30-100)
[2023-01-05 19:16] LABS: Vitamin B12 815 pg/mL (239-931)
== END ==
PROVIDERS: PCP Nurse Practitioner; Visit Provider Nurse Practitioner
DX: E53.8 Deficiency of other specified B group vitamins (principal); E55.9 Vitamin D deficiency, unspecified; E78.5 Hyperlipidemia, unspecified; Z12.4 Encounter for screening for malignant neoplasm of cervix
CPT/HCPCS: 80053; 82306; 82607

== ENCOUNTER → 2023-01-09 08:03 | Outpatient (CLI) | payer OTHER, SELFPAY ==
--- NOTE | 2023-01-09 08:03 | XR_ITS ---
FINAL REPORT CLINICAL HISTORY: screening, postmenopausal FINDINGS: Using L1-4, the bone mineral density of the spine is 0.95 g/cm2, corresponding to T-score of -0.9. Using the left hip, the bone mineral density of the femoral neck is 0.824 g/cm2, corresponding to a T-score of -0 point. Using the right hip: The bone mineral density of the femoral neck is 0.755 g/cm2, corresponding to a T-score of -1.0. FRAX 10 year fracture risk is 10% for a hip fracture and 0.3% for a major osteoporotic fracture. IMPRESSION: Normal bone mineral density of the lumbar spine and left hip. Low bone density of the right hip. NOTE: T-score: Standard deviation compared with peak bone mass of young adult mean. *Following the recommendations of the International Society of Bone densitometry, classification of hip BMD is based on the lower of two T-scores; total hip or femoral neck. Reviewed, Interpreted and Dictated by Topher Franco III, MD Transcribed by Hodan Maravilla Authenticated and [facility]
--- NOTE | 2023-01-09 08:03 | MM_ITS ---
PROCEDURE INFORMATION: Exam: MG Bilateral Screening 3D Mammography Exam date and time: 01/09/2023 8:04 AM Age: 62 years old Clinical indication: Screening mammogram TECHNIQUE: Imaging protocol: Bilateral Screening tomosynthesis and 2D mammography including computer-aided detection (CAD) when performed. COMPARISON: 1. MG MM DIG SCREENING MAMM BI W/CAD 01/05/2022 1:00 PM 2. MG MAMMOGRAM SCREENING BILAT 08/07/2020 8:36 AM FINDINGS: MAMMOGRAPHY: Breast composition: There are scattered areas of fibroglandular density. Mass: None. Architectural distortion: No new or suspicious architectural distortion. Calcifications: No new or suspicious calcifications are present Asymmetric density: No new or suspicious asymmetric density is present Skin thickening: None. Axillary adenopathy: None. IMPRESSION: No mammographic evidence of malignancy. Recommend annual screening mammography unless otherwise clinically indicated. ASSESSMENT: BI-RADS Category 1: Negative
== END ==
PROVIDERS: PCP Nurse Practitioner; Visit Provider Nurse Practitioner
DX: Z13.820 Encounter for screening for osteoporosis; Z78.0 Asymptomatic menopausal state; Z12.31 Encounter for screening mammogram for malignant neoplasm of breast; G47.34 Idiopathic sleep related nonobstructive alveolar hypoventilation
CPT/HCPCS: 77063; 77067; 77080; 94762

== ENCOUNTER → 2023-01-24 12:27 | Outpatient (CLI) | payer OTHER, SELFPAY ==
--- NOTE | 2023-01-24 12:28 | CT_ITS ---
FINAL REPORT TECHNIQUE: Thin section axial CT with IV contrast supplemented with multiplanar reconstruction under CT angiogram protocol. 3-D reconstructions were performed. This study was performed with techniques to keep radiation doses as low as reasonably achievable (ALARA). Individualized dose reduction techniques using automated exposure control or adjustment of mA and/or kV according to the patient''s size were employed. CLINICAL HISTORY: abn MRA COMPARISON: None FINDINGS: The distal vertebral, basilar and distal internal carotid arteries have an unremarkable appearance. No aneurysm is seen. Major intracranial vessels are patent without significant stenosis. IMPRESSION: No intracranial vascular abnormality is identified. Reviewed, Interpreted and Dictated by Topher Franco III, MD Transcribed by Amanda Da Silva Authenticated and . [facility]
== END ==
PROVIDERS: PCP Nurse Practitioner; Visit Provider Nurse Practitioner Family
DX: R42 Dizziness and giddiness (principal); R90.89 Other abnormal findings on diagnostic imaging of central nervous system; F14.91 Cocaine use, unspecified, in remission; F19.91 Other psychoactive substance use, unspecified, in remission; H93.19 Tinnitus, unspecified ear; R26.89 Other abnormalities of gait and mobility; W19.XXXA Unspecified fall, initial encounter
CPT/HCPCS: 70496; Q9967

== ENCOUNTER → 2023-01-31 11:23 | Outpatient (CLI) | payer OTHER, SELFPAY ==
--- NOTE | 2023-01-31 11:39 | XR_ITS ---
FINAL REPORT CLINICAL HISTORY: hypoxemia FINDINGS: Two views of the chest were obtained. The heart size and pulmonary vascularity are within normal limits. The mediastinum is normal. There is mild atelectasis or scarring in the lung bases. There is no pneumothorax. The bony thorax is intact. IMPRESSION: Mild bibasilar atelectasis or scarring. Reviewed, Interpreted and Dictated by Topher Franco III, MD Transcribed by Get Gordillo Authenticated and [facility]
[2023-01-31 12:09] LABS: Blood Urea Nitrogen 9 mg/dl (7-17); Erythrocyte Sedimentation Rate 15 mm/hr (0-30); Estimated Glomerular Filt Rate 73 ml/min (>60); GFR (African American) 89 ML/MIN (>60)
== END ==
PROVIDERS: PCP Nurse Practitioner; Visit Provider Nurse Practitioner Family
DX: G47.34 Idiopathic sleep related nonobstructive alveolar hypoventilation (principal); H93.19 Tinnitus, unspecified ear; R26.89 Other abnormalities of gait and mobility; R42 Dizziness and giddiness; W19.XXXA Unspecified fall, initial encounter; R90.89 Other abnormal findings on diagnostic imaging of central nervous system
CPT/HCPCS: 36415; 71046; 82565; 84520; 85651

== ENCOUNTER → 2023-02-07 12:48 | Outpatient (CLI) | payer OTHER, SELFPAY ==
[2023-02-07 13:40] VITALS: PULSE 46; PULSE 55
== END ==
PROVIDERS: PCP Nurse Practitioner; Visit Provider Nurse Practitioner Family
DX: G47.34 Idiopathic sleep related nonobstructive alveolar hypoventilation (principal)
CPT/HCPCS: 94060; 94618; 94640; 94727; 94729

== ENCOUNTER → 2023-03-06 19:41 | Outpatient (CLI) | payer OTHER, SELFPAY | PROVIDERS: PCP Nurse Practitioner; Visit Provider Nurse Practitioner Family | DX: G47.33 Obstructive sleep apnea (adult) (pediatric) (principal); G47.36 Sleep related hypoventilation in conditions classified elsewhere; G47.10 Hypersomnia, unspecified; R06.83 Snoring; R51.9 Headache, unspecified | CPT/HCPCS: 95810 ==

== ENCOUNTER 2023-07-25 10:47 | Outpatient (CLI) | payer OTHER, SELFPAY | END 2023-07-25 23:59 | LOC: LAB.DROPOF 10:48 | PROVIDERS: PCP Nurse Practitioner; Visit Provider Nurse Practitioner | DX: R30.0 Dysuria (principal) | CPT/HCPCS: 87086 ==

== ENCOUNTER 2023-09-22 11:02 | Emergency (ER) | payer OTHER, SELFPAY ==
[2023-09-22 11:03] VITALS: BP 141/101; PULSE 65; RESP 18; TEMP 36.5; O2SAT 95; BMI 35.4
--- NOTE | 2023-09-22 11:12 | XR_ITS ---
FINAL REPORT CLINICAL HISTORY: pain after fall several days ago COMPARISON: 07/20/2022 FINDINGS: Right shoulder Three views were obtained. There is no acute fracture or dislocation. There is mild AC and glenohumeral joint degenerative change. No soft tissue abnormality is identified. IMPRESSION: No acute process. Reviewed, Interpreted and Dictated by Topher Franco III, MD Transcribed by Ana Dewey Authenticated and [facility]
--- NOTE | 2023-09-22 11:12 | XR_ITS ---
FINAL REPORT CLINICAL HISTORY: pain after fall several days ago COMPARISON: 08/17/2022 FINDINGS: A single view of the chest with 3 views of the ribs were obtained. There is mild right base atelectasis. No pneumothorax is identified. There is mild irregularity of the right 7th rib consistent with a fracture of uncertain age. IMPRESSION: Right 7th rib fracture of uncertain age. Reviewed, Interpreted and Dictated by Topher Franco III, MD Transcribed by Ana Dewey Authenticated and [facility]
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
[2023-09-22] MEDS: METHOCARBAMOL 500MG TABLET 500 MG PO (11:24)
[2023-09-22] MEDS: KETOROLAC 30MG/ML VIAL 15 MG IM (11:27)
--- NOTE | 2023-09-22 12:15 | PC.NURSE ---
rounded on pt, pain has improved. She is reading a book sitting in the chair
--- NOTE | 2023-09-22 13:00 | PC.NURSE ---
Called radiology to check on status of xray reads, they will send down prelim reports as soon as they come in
--- NOTE | 2023-09-22 13:28 | PC.NURSE ---
Dr. Arauz given prelim reports from pt's xrays
[2023-09-22 13:47] VITALS: BP 141/104; PULSE 73; RESP 18; TEMP 36.6; O2SAT 93
== END 2023-09-22 13:52 | disposition home or self-care (01) ==
PROVIDERS: Emergency Provider Emergency Medicine; PCP Family Medicine
DX: M25.511 Pain in right shoulder (principal); W19.XXXA Unspecified fall, initial encounter
CPT/HCPCS: 71101; 73030; 96372; 99283; J1885

== ENCOUNTER 2023-11-20 14:05 | Outpatient (CLI) | payer OTHER, SELFPAY ==
[2023-11-20 21:28] LABS: Basophils % 0.4 % (0.1-2.0); Eosinophils # 0.2 K/mm3 (0.0-0.4); Eosinophils % 4.2 % (0.1-12.0); Hematocrit 40.4 % (37.0-47.0); Hemoglobin 12.3 g/dL (12.2-16.2); Lymphocytes # 1.8 K/mm3 (0.7-4.5); Lymphocytes % 31.7 % (10-50); Mean Corpuscular HGB Conc 30.4 g/dL (31.8-35.4); Mean Corpuscular Hemoglobin 29.1 pg (27.0-31.2); Mean Corpuscular Volume 95.5 fl (81-99); Mean Platelet Volume 9.4 fl (7.4-10.4); Monocytes # 0.4 K/mm3 (0.1-1.0); Monocytes % 6.7 % (1.7-9.3); Neutrophils # 3.3 K/mm3 (1.8-7.8); Neutrophils % 57.1 % (37.0-80.0); Platelet Count 228 K/mm3 (142-424); Red Blood Count 4.23 M/mm3 (4.20-5.40); Red Cell Distribution Width 15.5 % (11.5-17.5); White Blood Count 5.7 K/mm3 (4.8-10.8)
[2023-11-20 21:29] LABS: Creatinine,Urine Random 121 mg/dL (Not Estab.)
[2023-11-20 21:31] LABS: Microalbumin < 6.000 mg/L (0-16.7)
[2023-11-20 21:51] LABS: Alanine Aminotransferase 13 U/L (12-78); Albumin Level 3.5 g/dl (3.5-5.0); Albumin/Globulin Ratio 1.3 (1.1-1.8); Alkaline Phosphatase 92 U/L (38-126); Anion Gap 5.9 mEq/L (5-15); Aspartate Amino Transferase 25 U/L (14-36); Bilirubin,Total 0.5 mg/dl (0.2-1.3); Blood Urea Nitrogen 8 mg/dl (7-17); Calcium 8.9 mg/dl (8.4-10.2); Carbon Dioxide 31 mmol/L (22.0-30.0); Chloride 105 mmol/L (98-107); Chol/HDL Ratio 2.8 (1-3.5); Cholesterol 139 mg/dl (140-200); Estimated Glomerular Filt Rate 64 ml/min (>60); GFR (African American) 77 ML/MIN (>60); Globulin 2.7 g/dL (1.3-3.2); Glucose 82 mg/dl (74-100); HDL Cholesterol 50 mg/dl (40-60); Potassium 3.9 mmoL/L (3.5-5.1); Sodium 138 mmol/L (136-145); Total Protein,Serum 6.2 g/dl (6.3-8.2); Triglycerides 91 mg/dl (30-150); VLDL Cholesterol 18 mg/dL (0-40)
[2023-11-20 22:12] LABS: Direct LDL Cholesterol 62.26 mg/dL (100-129)
[2023-11-20 22:21] LABS: Hemoglobin A1C 5.5 % (4.0-6.0)
[2023-11-20 22:22] LABS: Thyroid Stimulating Hormone 1.39 uIU/mL (0.465-4.68)
[2023-11-20 22:51] LABS: Vitamin B12 > 1000 pg/mL (239-931)
[2023-11-20 22:58] LABS: 25-OH Vitamin D, Total 16.1 ng/mL (30-100)
== END 2023-11-20 23:59 | disposition home or self-care (01) ==
LOC: LAB.DROPOF 11-21 15:11
PROVIDERS: PCP Nurse Practitioner; Visit Provider Nurse Practitioner
DX: E78.5 Hyperlipidemia, unspecified (principal); E55.9 Vitamin D deficiency, unspecified; E66.9 Obesity, unspecified; Z68.36 Body mass index [BMI] 36.0-36.9, adult; E53.8 Deficiency of other specified B group vitamins; F41.8 Other specified anxiety disorders
CPT/HCPCS: 80050; 80053; 80061; 82043; 82306; 82570; 82607; 83036; 84443; 85025

== ENCOUNTER 2023-12-12 07:54 | Outpatient (CLI) | payer OTHER, SELFPAY ==
--- NOTE | 2023-12-12 07:55 | CT_ITS ---
FINAL REPORT CLINICAL HISTORY: lung nodule COMPARISON: None FINDINGS: Axial CT images of the chest were obtained with contrast. Coronal reformatted images were also obtained. This study was performed with techniques to keep radiation doses as low as reasonably achievable, (ALARA). Individualized dose reduction techniques using automated exposure control or adjustment of mA and/or KV according to the patient''''s size were employed. A 5 mm left thyroid lobe nodule is nonspecific. There is no evidence of mediastinal or hilar mass or adenopathy.No axillary mass or adenopathy is identified. There is a small hiatal hernia. Mild scarring is noted at the lung bases. On lung window images, no pulmonary mass or dominant pulmonary nodule is identified. There are calcified granulomas in the right lung base. Elevation is noted of the right hemidiaphragm with right middle lobe atelectasis. There are multiple subacute and chronic left rib fractures. Limited images of the upper abdomen reveal the patient is postcholecystectomy and post gastric bypass. There is moderate left renal scarring. IMPRESSION: No pulmonary mass or suspicious nodule identified. 5 mm left thyroid lobe nodule, nonspecific. Reviewed, Interpreted and Dictated by Topher Franco III, MD Transcribed by Carrie Downey Authenticated and [facility]
--- NOTE | 2023-12-12 07:55 | MM_ITS ---
PROCEDURE INFORMATION: Exam: MG Bilateral Screening 3D Mammography Exam date and time: 12/12/2023 8:13 AM Age: 63 years old Clinical indication: Screening examination TECHNIQUE: Imaging protocol: Bilateral Screening tomosynthesis and 2D mammography including computer-aided detection (CAD) when performed. COMPARISON: 1. MG MM DIG SCREENING MAMM BI W/CAD 01/09/2023 8:04 AM 2. MG MM DIG SCREENING MAMM BI W/CAD 01/05/2022 1:00 PM FINDINGS: MAMMOGRAPHY: Breast composition: The breasts are almost entirely fatty. Mass: None. Architectural distortion: None. Calcifications: No suspicious calcifications. Asymmetric density: None. Skin thickening: None. Axillary adenopathy: None. IMPRESSION: No mammographic evidence of malignancy. Annual screening is recommended unless otherwise clinically indicated. ASSESSMENT: BI-RADS Category 1: Negative
[2023-12-12 08:33] LABS: Blood Urea Nitrogen 13 mg/dl (7-17); Estimated Glomerular Filt Rate 56 ml/min (>60); GFR (African American) 68 ML/MIN (>60)
[2023-12-12] MEDS: SODIUM CHLORIDE 0.9% 10ML SYR (RAD ONLY) 10 ML IV (09:30)
[2023-12-12] MEDS: IOPAMIDOL-370 (76%);100ML BOTTLE 75 ML IV (09:31)
== END 2023-12-12 23:59 | disposition home or self-care (01) ==
LOC: RAD 07:55
PROVIDERS: PCP Nurse Practitioner; Visit Provider Nurse Practitioner
DX: R91.1 Solitary pulmonary nodule; Z12.31 Encounter for screening mammogram for malignant neoplasm of breast
CPT/HCPCS: 36415; 71260; 77063; 77067; 82565; 84520; Q9967

== ENCOUNTER 2023-12-20 12:49 | Outpatient (CLI) | payer OTHER, SELFPAY ==
--- NOTE | 2023-12-20 12:49 | US_ITS ---
FINAL REPORT CLINICAL HISTORY: thyroid nodule COMPARISON: None FINDINGS: Sonographic images of the thyroid gland were obtained. The right thyroid lobe measures 48 mm. in length. The left thyroid lobe measures 52 mm. in length. The thyroid isthmus measures 5 mm. The echogenicity is normal. There are multiple thyroid nodules bilaterally. The largest on the right measures 11 x 5 x 9 mm, mostly solid and isoechoic, TR 3 nodule. The largest on the left measures 16 x 9 x 12 mm, cystic and solid, hypoechoic TR 3 nodule. IMPRESSION: Bilateral TR 3 nodules. Recommend follow-up in 6-12 months per TI-RADS criteria. Reviewed, Interpreted and Dictated by Topher Franco III, MD Transcribed by Carrie Downey Authenticated and [facility]
== END 2023-12-20 23:59 | disposition home or self-care (01) ==
LOC: RAD 12:49
PROVIDERS: PCP Nurse Practitioner; Visit Provider Nurse Practitioner
DX: E04.1 Nontoxic single thyroid nodule (principal)
CPT/HCPCS: 76536

== ENCOUNTER 2024-02-06 06:52 | Day surgery (SDC) | payer OTHER, SELFPAY ==
[2024-02-06] MEDS: LACTATED RINGERS 1000ML 1,000 ML 25 ML IV (07:52)
[2024-02-06 07:57] VITALS: BP 138/74; PULSE 57; RESP 17; TEMP 36.6; O2SAT 94; BMI 36.4
--- NOTE | 2024-02-06 08:36 | P.PNANES_ITS ---
[facility] Disclaimer: The information contained in this section may have been updated after the patient was seen, as this information can be updated by other users. Medical History Thyroid nodule Lung nodule Neoplasm of uncertain behavior of skin of face Cocaine abuse in remission History of OCD (obsessive compulsive disorder) Generalized anxiety disorder with panic attacks MDD (major depressive disorder), recurrent, with melancholic features Chronic post-traumatic stress disorder (PTSD) Obesity Depression with anxiety Vitamin B12 deficiency Screening for malignant neoplasm of breast Screening for osteoporosis Postmenopausal Unsteady gait when walking Fall at home Vitamin D deficiency Hyperlipidemia Closed traumatic nondisplaced fracture of rib of left side with routine healing History of cataract Depression Anxiety Head ache Surgical History Hx of shoulder surgery History of cataract removal with insertion of prosthetic lens History of cholecystectomy History of tubal ligation History of History of bariatric surgery Family History Other Cancer Coronary artery disease Heart attack Hyperlipidemia Hypertension Social History Smoking Status: Never smoker second hand exposure: Yes alcohol intake: current alcohol intake frequency: holidays/special occasions only substance use type: marijuana (Pat claims to smoke marijuana every once in a while.) and crack/cocaine (Pat admits to being in active addiction for 35 yrs, now in recovery for 2 yrs.) 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.) Travel in the last 8 weeks: None household members: family housing: house lives independently: No number of children: 2 current occupational exposures/hazards: No caffeine: Yes [facility] Anesthesia Checklist Patient Identification Patient Identification: Arm Band and Verbal (Name & ) Structural Data Admitted From: Home Planned Operative Procedure/s: Colonoscopy Consent for Planned Operative Procedure(s) Verified: Yes Verified Documents: Surgical Consent and History and Physical NPO Status Verified Time NPO: 00:00 Additional verifications Anesthesia Reactions: No Hx Blood Transfusions: No Blood Transfusion Reaction: No Airway Assessment Mallampati Score:: Class III C-Spine Mobility Assessed: Yes TMJ Mobility Assessed: Yes Dentition: Good Dentition Neurological Assessment Level of Consciousness: Awake Hx Seizures: No Numbness or tingling in extremities: No Anesthesia Plan Anesthesia Risk discussed: Yes Anesthesia Plan: Verified ASA Class: II Anesthesia Type: MAC
--- NOTE | 2024-02-06 08:39 | HMH.SCOPE ---
Procedure: Date: 02/06/24 Patient Date of :: 1960 Procedure Performed:: Colonoscopy Indications:: Screening Note: The patient is 1 year status post colonoscopy performed by Dr. Lee at which time she had limited bowel prep in the proximal colon requiring short-term repeat evaluation. Performing Provider:: Ethan Kong MD Referring Provider:: . Sedation:: Monitored anesthesia care Procedure:: After informed consent was obtained the patient was taken to the endoscopy suite. Sedation ensued after the patient was transferred to the left lateral decubitus position. Pulse, blood pressure, and oxygen saturation were monitored throughout the procedure. Digital rectal exam revealed no significant abnormality. The colonoscope was placed in position. The entire colon was evaluated. The colonoscope was carefully removed and the patient was transferred to recovery in stable condition. Please see findings and specimens below for detail. Findings:: Bowel preparation moderate Fairly severe tortuosity Significant spasticity Specimens:: None Recommendations:: Barium enema in near future secondary to above findings Repeat colonoscopy pending results of barium enema but likely in 3-5 years Complications:: No immediate Estimated blood obtained (mL): 0 Colonoscopy Component Colonoscopy Component Was a colonoscopy performed during today's procedure?: Yes Recommended follow up colonoscopy of at least 10 years?: No If no, follow up colonoscopy recommended in ___ years?: (See above) Reason for not recommending >/= 10 yr follow-up interval?: (See above)
[2024-02-06 08:42] VITALS: O2SAT 95
[2024-02-06 09:07] VITALS: BP 100/59; PULSE 58; RESP 18; TEMP 36.3; O2SAT 98
[2024-02-06 09:17] VITALS: BP 100/59; PULSE 58; RESP 18; O2SAT 98
[2024-02-06 09:27] VITALS: BP 110/74; PULSE 63; RESP 18; O2SAT 98
[2024-02-06 09:37] VITALS: BP 111/80; PULSE 62; RESP 18; O2SAT 92
== END 2024-02-06 09:37 | disposition home or self-care (01) ==
PROVIDERS: PCP Nurse Practitioner; Visit Provider Surgery
PROC: 0DJD8ZZ Inspection of Lower Intestinal Tract, Via Natural or Artificial Opening Endoscopic (ICD-10-PCS; CPT 45378; principal; 2024-02-06 08:30)
DX: Z12.11 Encounter for screening for malignant neoplasm of colon (principal); K57.30 Diverticulosis of large intestine without perforation or abscess without bleeding; K64.9 Unspecified hemorrhoids
CPT/HCPCS: 45378; J7120

== ENCOUNTER 2024-02-13 07:22 | Outpatient (CLI) | payer OTHER, SELFPAY ==
--- NOTE | 2024-02-13 07:22 | FL_ITS ---
FINAL REPORT CLINICAL HISTORY: colon check, incomplete colonoscopy FINDINGS: BARIUM ENEMA HISTORY: Constipation. Retained stool on colonoscopy. PROCEDURE: Single-contrast barium was introduced by gravity drip. 13 spot and overhead films were obtained. Fluoro time: 3 minutes 44 seconds Radiation exposure in Reference air Kerma: 374.91 mGy. FINDINGS: Home Staging Specialist film is unremarkable. Retained stool limits mucosal detail. Scattered diverticuli are seen throughout the colon, most pronounced within the sigmoid colon. No constricting or obstructing lesions are identified to the level of the cecum. The patient has an incompetent ileocecal valve. IMPRESSION: No constricting or obstructing lesions to the level of the cecum. Scattered diverticulosis. Films reviewed , interpreted and dictated by Dr. Franco. Transcribed by Sae Jc PA-C. Reviewed, Interpreted and Dictated by Topher Franco III, MD Transcribed by DAYANARA Lang Authenticated and [facility]
[2024-02-13] MEDS: BARIUM SULFATE(E-Z-AC);1900ML BOTTLE 3800 ML PO (08:49)
== END 2024-02-13 23:59 | disposition home or self-care (01) ==
LOC: RAD 07:22
PROVIDERS: PCP Nurse Practitioner; Visit Provider Surgery
DX: Z12.11 Encounter for screening for malignant neoplasm of colon (principal)
CPT/HCPCS: 74270

== ENCOUNTER 2024-05-22 11:10 | Outpatient (CLI) | payer OTHER, SELFPAY ==
[2024-05-22 18:48] LABS: Basophils % 0.6 % (0.1-2.0); Eosinophils # 0.2 K/mm3 (0.0-0.4); Eosinophils % 4.2 % (0.1-12.0); Hematocrit 37.5 % (37.0-47.0); Hemoglobin 12.1 g/dL (12.2-16.2); Lymphocytes # 1.5 K/mm3 (0.7-4.5); Lymphocytes % 30.8 % (10-50); Mean Corpuscular HGB Conc 32.3 g/dL (31.8-35.4); Mean Corpuscular Hemoglobin 27.8 pg (27.0-31.2); Mean Platelet Volume 9.9 fl (7.4-10.4); Monocytes # 0.4 K/mm3 (0.1-1.0); Monocytes % 8.5 % (1.7-9.3); Neutrophils # 2.7 K/mm3 (1.8-7.8); Neutrophils % 55.7 % (37.0-80.0); Platelet Count 215 K/mm3 (142-424); Red Blood Count 4.36 M/mm3 (4.20-5.40); Red Cell Distribution Width 14.9 % (11.5-17.5); White Blood Count 4.8 K/mm3 (4.8-10.8)
[2024-05-22 19:05] LABS: Creatinine,Urine Random 112 mg/dL (Not Estab.)
[2024-05-22 19:13] LABS: Erythrocyte Sedimentation Rate 13 mm/hr (0-30)
[2024-05-22 19:14] LABS: Hemoglobin A1C 5.4 % (4.0-6.0); Microalbumin < 6.000 mg/L (0-16.7)
[2024-05-22 19:29] LABS: Alanine Aminotransferase 19 U/L (12-78); Albumin Level 4.1 g/dl (3.5-5.0); Albumin/Globulin Ratio 1.9 (1.1-1.8); Alkaline Phosphatase 83 U/L (38-126); Anion Gap 16.2 mEq/L (5-15); Aspartate Amino Transferase 27 U/L (14-36); Bilirubin,Total 0.7 mg/dl (0.2-1.3); Blood Urea Nitrogen 14 mg/dl (7-17); Calcium 9.1 mg/dl (8.4-10.2); Carbon Dioxide 28 mmol/L (22.0-30.0); Chloride 99 mmol/L (98-107); Chol/HDL Ratio 3.6 (1-3.5); Cholesterol 160 mg/dl (140-200); Estimated Glomerular Filt Rate 64 ml/min (>60); GFR (African American) 77 ML/MIN (>60); Globulin 2.2 g/dL (1.3-3.2); Glucose 75 mg/dl (74-100); HDL Cholesterol 45 mg/dl (40-60); Potassium 4.2 mmoL/L (3.5-5.1); Sodium 139 mmol/L (136-145); Total Protein,Serum 6.3 g/dl (6.3-8.2); Triglycerides 121 mg/dl (30-150); Uric Acid 4.6 mg/dl (2.5-6.2); VLDL Cholesterol 24 mg/dL (0-40)
[2024-05-22 19:41] LABS: C-Reactive Protein 2.4 mg/L (0-4); Direct LDL Cholesterol 79.47 mg/dL (100-129)
[2024-05-22 20:13] LABS: 25-OH Vitamin D, Total 61.5 ng/mL (30-100)
[2024-05-22 20:23] LABS: Thyroid Stimulating Hormone 1.07 uIU/mL (0.465-4.68)
[2024-05-22 20:42] LABS: Vitamin B12 738 pg/mL (239-931)
[2024-05-24 10:11] LABS: Anti-Centromere B Antibodies <0.2 AI (0.0-0.9); Anti-DNA (DS) Ab Qn 1 IU/mL (0-9); Anti-Jo-1 <0.2 AI (0.0-0.9); Anti-Smith Antibody <0.2 AI (0.0-0.9); Antichromatin Antibodies <0.2 AI (0.0-0.9); Antiscleroderma-70 Antibodies <0.2 AI (0.0-0.9); RNP Antibodies <0.2 AI (0.0-0.9); Sjogren's Anti-SS-A <0.2 AI (0.0-0.9); Sjogren's Anti-SS-B <0.2 AI (0.0-0.9)
[2024-05-24 15:11] LABS: RA Latex Turbid. <10.0 IU/mL (<14.0)
[2024-05-27 16:12] LABS: Antinuclear Antibodies, IFA Negative (.)
== END 2024-05-22 23:59 | disposition home or self-care (01) ==
LOC: LAB.DROPOF 05-23 11:21
PROVIDERS: PCP Nurse Practitioner; Visit Provider Nurse Practitioner
DX: E78.5 Hyperlipidemia, unspecified (principal); E55.9 Vitamin D deficiency, unspecified; E53.8 Deficiency of other specified B group vitamins; E66.01 Morbid (severe) obesity due to excess calories; Z68.36 Body mass index [BMI] 36.0-36.9, adult; M25.50 Pain in unspecified joint
CPT/HCPCS: 80053; 80061; 82043; 82306; 82570; 82607; 83036; 84443; 84550; 85025; 85651; 86038; 86140; 86225; 86235; 86431

== ENCOUNTER 2024-06-04 07:41 | Outpatient (CLI) | payer OTHER, SELFPAY ==
--- NOTE | 2024-06-04 | CA_ITS ---
APPROVED REPORT Exam: Pharmacologic Technologist: Lauren Santiago Ht: 5 ft 9 in Wt: 253 lbs BSA: 2.28 m2 HR: 51 bpm BP: 110/63 mmHg Stress Test Details Test: Lexiscan HR Resting HR: 51 bpm Max Heart Rate (APMHR): 159.243075 bpm Max HR Achieved: 67 bpm Target HR (85% APMHR): 135.213291 bpm % of APMHR: 42.14 Recovery HR: 63 bpm BP Resting BP: 110.0/63.0 mmHg Max BP: 117.0/56.0 mmHg Recovery BP: 110.0/68.0 mmHg ECG Resting ECG: Normal sinus rhythm, inferior Q waves Stress ECG Conclusion Symptoms: Positive chest discomfort with left arm discomfort. Arrhythmias/Ectopy: None ST-T Changes: < 1.[address] segment changes. Conclusion: Abnormal stress due to symptoms. EKG/Lexiscan portion non-diagnostic. Electronically signed by : Danielle Machado MD 06/05/2024 12:00:27
--- NOTE | 2024-06-04 07:42 | NM_ITS ---
APPROVED REPORT Exam: Nuclear Stress Test Indication: Chest pain, SOB, High cholesterol, Family history Patient Location: Outpatient Stress Tech: Lauren Santiago NM Tech:[facility], RT (R)(N) Ht: 5 ft 9 in Wt: 250 lbs Bra Size: 42C HR: 52 bpm BP: 110/63 mmHg BSA: 2.27 m2 TID: 1.13 BMI: 36.9 History: Chest pain, SOB, High cholesterol, Family history Procedure: Patient received 0.4 mg of intravenous Lexiscan, resting heart rate 52 bpm, resting blood pressure 110/63 mmHg, with Lexiscan maximum heart rate achieved was 88 bpm which is % of the maximum predicted heart rate and blood pressure was 123/60 mmHg. With Lexiscan, patient denied any complaint of chest pain. Cardiac Stress and Resting SPECT Images: Cardiac Stress and Resting SPECT images were obtained using technetium 99m Myoview 32.3 mCi stress and 10.56 mCi at rest. Resting and stress imaging in supine and prone positions demonstrate no evidence of fixed or reversible perfusion defects. Gated image demonstrates normal global and regional LV systolic function. LVEF is calculated at 56%. Conclusion: No evidence of fixed or reversible perfusion defects. Gated image demonstrates normal global and regional LV systolic function. LVEF is calculated at 56%. Electronically signed by : Danielle Machado MD 06/04/2024 13:12:54
--- NOTE | 2024-06-04 07:42 | XR_ITS ---
FINAL REPORT CLINICAL HISTORY: Left hip pain FINDINGS: LEFT HIP 3 views of the left hip are obtained. There is no acute fracture or dislocation. Visualized joint spaces are normally aligned. There are mild degenerative changes. There is no acute soft tissue abnormality. IMPRESSION: No acute bony abnormality. Reviewed, Interpreted and Dictated by Shantanu Boles MD Transcribed by Shreya Hernandez Authenticated and [facility]
--- NOTE | 2024-06-04 07:42 | US_ITS ---
FINAL REPORT TECHNIQUE: Sonographic images of the thyroid were obtained. CLINICAL HISTORY: 6 mos f/u on thyroid nodule AFTER 06/18/24 please COMPARISON: 12/20/2023 FINDINGS: THYROID ULTRASOUND SIZE: Normal ECHOGENICITY: Homogeneous LESIONS: There are few scattered nodules, some of which are small cysts. The largest within the right lobe measures 10 mm, isoechoic TR 3 nodule, previously 11 mm, stable. The largest within the left lobe is mildly heterogeneous but predominantly solid isoechoic measuring up to 17 mm, previously 16 mm, also considered stable. There is a 10 mm TR 4 nodule of the left lobe, previously 9 mm. OTHER: No additional findings. IMPRESSION: Multinodular goiter without significant change of the largest 3 nodules detailed above. Recommend 12-month follow-up per TI-RADS criteria. Reviewed, Interpreted and Dictated by Shantanu Boles MD Transcribed by Aicha Augustin Authenticated and [facility]
--- NOTE | 2024-06-04 07:42 | XR_ITS ---
FINAL REPORT CLINICAL HISTORY: bilateral knee pain FINDINGS: LEFT KNEE 2 views were obtained. There is no acute fracture or dislocation. The joint spaces are intact. There is mild degenerative change of the medial compartment. Bones are osteopenic. There is no soft tissue abnormality. IMPRESSION: Degenerative change without acute bony abnormality. Reviewed, Interpreted and Dictated by Shantanu Boles MD Transcribed by Shreya Hernandez Authenticated and [facility]
--- NOTE | 2024-06-04 07:42 | XR_ITS ---
FINAL REPORT CLINICAL HISTORY: SOBOE, chest pressure COMPARISON: 12/12/2023 FINDINGS: 2 views of the chest were obtained . The heart is normal in size. The mediastinum is within normal limits. There is stable right basilar scarring and mild elevation of the right hemidiaphragm. The lungs are otherwise clear. There is no pneumothorax. There are old left rib fractures noted. IMPRESSION: No acute cardiopulmonary process. Reviewed, Interpreted and Dictated by Shantanu Boles MD Transcribed by Shreya Hernandez Authenticated and [facility]
--- NOTE | 2024-06-04 07:42 | XR_ITS ---
FINAL REPORT CLINICAL HISTORY: bilateral knee pain FINDINGS: RIGHT KNEE 2 views were obtained. There is no acute fracture or dislocation. The joint spaces are intact. There is mild degenerative change of the medial compartment. Bones are osteopenic. There is no soft tissue abnormality. IMPRESSION: No acute fracture Reviewed, Interpreted and Dictated by Shantanu Boles MD Transcribed by Shreya Hernandez Authenticated and [facility]
[2024-06-04] MEDS: ISOTOPE MYOVIEW (PER STUDY) 1 DOSE IV (09:18)
[2024-06-04] MEDS: SODIUM CHLORIDE 0.9% 10ML SYR (RAD ONLY) 10 ML IV ×2 (09:18)
[2024-06-04] MEDS: REGADENOSON 0.4MG/5ML SYRINGE 0.4 MG IV (09:18)
--- NOTE | 2024-06-04 11:28 | ECG_ITS ---
APPROVED REPORT Exam: Resting ECG HR:48 bpm ECG Measurements Heart Rate 48 AXES TX 179 P 32 QRSd 92 QRS 18 QT 460 T 7 QTc 425 Conclusion SINUS BRADYCARDIA LOW QRS VOLTAGE IN PRECORDIAL LEADS [QRS DEFLECTION < 1.0 mV IN CHEST LEADS] BORDERLINE ECG UNCONFIRMED REPORT Electronically signed by : Julien Conroy MD 06/05/2024 08:50:43
== END 2024-06-04 23:59 | disposition home or self-care (01) ==
LOC: RAD 07:42
PROVIDERS: PCP Nurse Practitioner; Visit Provider Nurse Practitioner
DX: M25.561 Pain in right knee (principal); M25.562 Pain in left knee; R06.02 Shortness of breath; R07.89 Other chest pain; E04.1 Nontoxic single thyroid nodule; M25.552 Pain in left hip
CPT/HCPCS: 71046; 73502; 73560; 76536; 78452; 93005; 93017; 93018; 93306; A9502; J2785

== ENCOUNTER 2024-06-05 11:44 | Outpatient (CLI) | payer OTHER, SELFPAY ==
[2024-06-08 01:08] LABS: Anti-CCP Abs,IgG and IgA (RDL) < 20 Units (<20)
== END 2024-06-05 23:59 | disposition home or self-care (01) ==
LOC: LAB 11:45
PROVIDERS: PCP Nurse Practitioner; Visit Provider Physician Assistant
DX: M06.9 Rheumatoid arthritis, unspecified (principal); M25.552 Pain in left hip
CPT/HCPCS: 36415; 86200

== ENCOUNTER 2024-07-03 08:52 | Outpatient (CLI) | payer OTHER, SELFPAY ==
[2024-07-03 09:41] VITALS: BMI 37.6
[2024-07-03 09:47] LABS: Chloride 105 mmol/L (98-107); Sodium 138 mmol/L (136-145)
[2024-07-03 09:48] LABS: Potassium 4.2 mmoL/L (3.5-5.1)
[2024-07-03 09:51] LABS: Anion Gap 7.2 mEq/L (5-15); Blood Urea Nitrogen 9 mg/dl (7-17); Calcium 8.7 mg/dl (8.4-10.2); Carbon Dioxide 30 mmol/L (22.0-30.0); Creatinine Clearance Estimated 107 mL/min (50-200); Estimated Glomerular Filt Rate 63 ml/min (>60); GFR (African American) 77 ML/MIN (>60); Glucose 93 mg/dl (74-100)
[2024-07-03 09:52] VITALS: BP 134/84; PULSE 57; RESP 17; O2SAT 98
--- NOTE | 2024-07-03 10:00 | CT_ITS ---
APPROVED REPORT Liquor Store Manager: CLINICAL INDICATION Chest Pain TECHNIQUE Image Acquisition: A 128 slice MDCT scanner ([employer] [address]) was used for data acquisition. A noncontrast coronary calcium scan was performed. A CT attenuation threshold of 130 Hounsfield units (HU) was used for the detection of calcium in contiguous voxels of 1 sq mm in area to be counted as individual lesions. Bolus tracking in the ascending aorta with a threshold of 180 HU was performed. Immediately afterwards, ECG synchronized cardiac CT was then performed from the cardiac base to apex using retrospective gating with ECG tube current modulation. A total of 85 mL of Isovue 370 mg/mL contrast medium was administered at 5 mL/sec followed by a saline flush using a biphasic injection protocol. A tube voltage of 120 KVp was used. The patient received the following medications prior to the cardiac CT. 0.8 mg of sublingual nitroglycerin The average heart rate at the time of acquisition was 45 bpm and regular. Image Reconstruction Transaxial images were reconstructed at 0.67 mm slide thickness. Data was reviewed interactively on an advanced workstation capable of 2 and 3-dimensional displays in all conventional reconstruction formats, including multiplanar reformations, maximum intensity projections, curved multiplanar reformations, and volume rendered reconstructions. When applicable, selected routine images describing the relevant coronary anatomy and pathology were saved and sent to PACS. Complications None Technical Quality Overall image quality was good. Coronary artery opacification was adequate. Total DLP (Dose-Length Product) is 2754.6 mGy-cm. The reported value represents the total of one or more individual components during the CT acquisition of this date and at this time, and as such, the same value may appear in more than one CT report depending on the interpreting/reporting physicians. COMPARISON None FINDINGS CT Coronary Calcium Scoring LMA (Left Main Artery) = 0 LAD (Left Anterior Descending) = 0 LCX (Left Coronary Circumflex) = 0 RCA (Right Coronary Artery) = 0 Total Calcium Score = 0 using the AJ-130 method. The interpretation of the calcium heart score is based on the following continuum*: 0 = no calcified plaque detected (risk of coronary artery disease is very low ??? less than 5%) 1-10 = calcium detected in extremely minimal levels (risk of coronary diseases is still low ??? less than 10%) 11-100 = mild levels of plaque detected with certainty (mild or minimal narrowing of heart arteries is likely) 101-400 = definite,at least moderate levels of plaque detected (relatively high risk of a heart attack within 3-5 years) >401-999 = extensive levels of plaque detected (high risk of heart attack, high levels of vascular disease are present, high likelihood of at least one significant coronary narrowing) *The calcium heart score quantifies the burden of coronary calcification/plaque in the coronary arteries. The calcium heart score is not able to evaluate the presence or burden of non-calcified (i.e. soft) plaque. There is no identifiable calcification in the aortic valve, mitral annulus or mitral valve, pericardium, or myocardium. Coronary CT Angiography The coronary arterial system is right dominant. Quantitative Stenosis Grading: Left Main (LM): The left main originates normally from the left sinus of Valsalva. The LM bifurcates into the left anterior descending artery and left circumflex artery. The LM is patent with no evidence of atherosclerosis. Left Anterior Descending (LAD) and Diagonal Branches: The LAD gives off 3 diagonal branch(es). The LAD and its branches are patent with no evidence of atherosclerosis. There is no evidence of LAD-myocardial bridge. Left Circumflex (LCX) and Obtuse Marginals (OM): The LCX gives off 1 Obtuse Marginal (OM) branch(es). The LCX and its branches are patent with no evidence of atherosclerosis. Right Coronary Artery (RCA): The RCA originates normally from the right sinus of Valsalva. The RCA gives off a posterior descending artery (PDA) and posterolateral (PL) branches. The RCA and its branches are patent with no evidence of atherosclerosis. Non-Coronary Cardiac Findings: Analysis of the left ventricular (LV) structure and function was performed after 3-D reconstruction of the LV from axial images, with user-corrected automatic contouring for assessment of LV volumes and user-defined reconstruction from oblique planes for measurement of 3-D cardiac structure and function. -The left ventricle systolic function is normal. -There is no left atrial appendage filling defect. Two right pulmonary veins and two left pulmonary veins drain normally into the left atrium. -No pericardial thickening or calcification. -Central and branch pulmonary arteries in the [id number] are unremarkable. -Thoracic aorta within the visualized thoracic aortic-branches in the [id number] is unremarkable. Extracardiac Structures A small hiatal hernia is incidentally noted. IMPRESSION -Absence of coronary calcification with an Agatston score = 0 using the AJ-130 method. -No evidence of significant flow-limiting atherosclerosis of the coronary arteries. -No evidence of myocardial bridges or coronary anomalies. -CAD-RADS 0. Management recommendations per ACC/AHA guidelines*, as clinically appropriate. -A small hiatal hernia is incidentally noted. *Recommendations: CAD RADS 0: Reassurance. Consider non-atherosclerotic causes of chest pain. CAD RADS 1: Consider non-atherosclerotic causes of chest pain. Consider preventive therapy and risk factor modification. CAD RADS 2: Consider non-atherosclerotic causes of chest pain. Consider preventive therapy and risk factor modification, particularly for patients with nonobstructive plaque in multiple segments. CAD RADS 3: Consider further functional testing. Consider symptom-guided anti-ischemic and preventive pharmacotherapy as well as risk factor modification per published guideline statements. CAD RADS 4A: Consider further functional testing or invasive coronary angiography with revascularization per published guideline statements. Consider symptom-guided anti-ischemic and preventive pharmacotherapy as well as risk factor modification per published guideline statements. CAD RADS 4B: Invasive coronary angiography recommended with revascularization per published guideline statements. Consider symptom-guided anti-ischemic and preventive pharmacotherapy as well as risk factor modification per published guideline statements. CAD RADS 5: Consider invasive angiography and/or viability assessment with revascularization per published guideline statements. Consider symptom-guided anti-ischemic and preventive pharmacotherapy as well as risk factor modification per published guideline statements. CRITICAL RESULT None COMMUNICATION Per this written report The coronary and cardiac findings of this CCTA were reviewed, reported, and signed by Murphy Machado MD ([employer] Blind Tape Cutter) Conclusion Electronically signed by : Danielle Machado MD 07/07/2024 21:57:29
[2024-07-03 10:25] VITALS: BP 149/80; PULSE 54; RESP 18; O2SAT 97
[2024-07-03] MEDS: NITROGLYCERIN 0.4MG SL TABLET SL (10:25)
[2024-07-03 10:30] VITALS: BP 110/70; PULSE 55; RESP 18; O2SAT 97
[2024-07-03 10:35] VITALS: BP 116/76; PULSE 58; RESP 18; O2SAT 97
[2024-07-03] MEDS: IOPAMIDOL-370 (76%);100ML BOTTLE 85 ML IV (10:42)
[2024-07-03] MEDS: 0.9 % SODIUM CHLORIDE 50 ML VIAL IV (10:42)
[2024-07-03] MEDS: SODIUM CHLORIDE 0.9% 10ML SYR (RAD ONLY) 10 ML IV (10:42)
[2024-07-03 10:45] VITALS: BP 133/79; PULSE 62; RESP 18; O2SAT 97
== END 2024-07-03 10:50 | disposition home or self-care (01) ==
LOC: RAD 08:53
PROVIDERS: PCP Nurse Practitioner; Visit Provider Nurse Practitioner Family
DX: R07.2 Precordial pain (principal); R06.02 Shortness of breath; R91.1 Solitary pulmonary nodule; F19.11 Other psychoactive substance abuse, in remission
CPT/HCPCS: 75574; 80048; Q9967

== ENCOUNTER 2024-09-11 14:40 | Outpatient (CLI) | payer OTHER, SELFPAY | END 2024-09-11 23:59 | disposition home or self-care (01) | LOC: LAB.DROPOF 09-12 13:25 | PROVIDERS: PCP Nurse Practitioner; Visit Provider Nurse Practitioner | DX: N10 Acute pyelonephritis (principal) | CPT/HCPCS: 87086; 87088; 87186 ==

== ENCOUNTER 2024-11-28 11:17 | Outpatient (CLI) | payer OTHER, SELFPAY ==
--- NOTE | 2024-11-28 11:20 | XR_ITS ---
FINAL REPORT CLINICAL HISTORY: left shoulder pain FINDINGS: LEFT SHOULDER 2 views of the left shoulder were obtained. There is no acute fracture or dislocation. There are mild hypertrophic changes of the acromioclavicular joint. Visualized joint spaces are normally aligned. Soft tissues are unremarkable. IMPRESSION: No acute bony abnormality. Reviewed, Interpreted and Dictated by Randal Rizo MD Transcribed by Shreya Hernandez Authenticated and [facility]
--- OUTSIDE RECORDS SUMMARY | 2024-11-28 11:26 | XMS_ITS | Clinical Summary ---
Author Organization [facility] Address [address] [place] [address] Phone Care Team Providers Care Marble Supervisor Name Role Phone Unavailable Primary Care Provider Unavailabl e Allergies Active Allergy Reactions Criticality Noted Date Comments Bupivacaine Other (See Comments) High 08/17/2023 Chloroprocaine Other (See Comments) High 08/17/2023 Medications VITAMIN D3 125 mcg (5,000 unit) Oral Tablet 3 Active ciprofloxacin HCl (CIPRO) 500 mg Oral Tablet Take 500 mg by mouth 2 times daily. 3 Active cyanocobalamin 1,000 mcg Oral Tablet 3 Active esomeprazole (NEXIUM) 40 mg Oral Capsule, Delayed Release(E.C.) 3 Active HYDROcodone-juan j taminophen (NORCO) 5-325 mg Oral Tablet Take 1 Tablet by mouth every 6 hours as needed. for pain 3 Active hydrOXYzine (VISTARIL) 25 mg Oral Capsule TAKE 2 CAPSULES BY MOUTH ONCE FOR PRIOR TO MRI 3 Active latanoprost (XALATAN) 0.005 % Opht Drops PLACE 1 DROP INTO BOTH EYES AT BEDTIME. 3 Active mirtazapine (REMERON) 15 mg Oral Tablet 3 Active PARoxetine (PAXIL) 30 mg Oral Tablet Take 30 mg by mouth daily. 3 Active propranoloL (INDERAL) 20 mg Oral Tablet 3 Active rosuvastatin (CRESTOR) 10 mg Oral Tablet TAKE 1 TABLET BY MOUTH ONCE DAILY FOR CHOLESTEROL. 3 Active traZODone (DESYREL) 100 mg Oral Tablet TAKE 1 TABLET BY MOUTH ONCE DAILY FOR DEPRESSION. 3 Active oxyCODONE (ROXICODONE) 5 mg Oral Tablet Take 1 Tablet by mouth every 8 hours as needed for Acute Pain (R52). 15 Tablet 3 Active Additional Information Patient not taking.Reason: Therapy Completed, Reported on 12/15/2022 VITAMIN B-12 1,000 mcg Oral Tablet Take 1,000 mcg by mouth daily. 3 Active tiZANidine (ZANAFLEX) 4 mg Oral TabletIndicatio ns:Compression fracture of T7 vertebra, initial encounter ([facility]),Contusion of sternum, initial encounter,Sprai n of ligaments of thoracic spine, initial encounter Take 1 Tablet by mouth nightly. 30 Tablet 3 Active tiZANidine (ZANAFLEX) 4 mg Oral Tablet Take 1 Tablet by mouth nightly. 30 Tablet 1 3 Active celecoxib (CELEBREX) 200 mg Oral CapsuleIndicati ons:Rib pain on left side,Closed fracture of one rib of left side, initial encounter Take 1 Capsule by mouth 2 times daily. 30 Capsule 1 3 Active Additional Information Patient not taking.Reason: Pt electing to not take the medication, Reported on 01/02/2024 tiZANidine (ZANAFLEX) 4 mg Oral TabletIndicatio ns:Rib pain on left side,Closed fracture of one rib of left side, initial encounter Take 1 Tablet by mouth nightly as needed. 30 Tablet 4 Active oxybutynin (DITROPAN-XL) 10 mg Oral Tablet Extended Rel 24 hr Take 10 mg by mouth nightly. Active levocetirizine (XYZAL) 5 mg Oral Tablet Take 5 mg by mouth daily. Active fluticasone propionate (FLONASE) 50 mcg/actuation Nasl [place], Suspension 1 [place] in each nostril daily. Active Active Problems Problem Noted Date Diagnosed Date Closed fracture of one rib of left side 12/16/19 Rib pain on left side 12/15/2022 Social History Tobacco Use Types Packs/Day Years Used Date Smoking Tobacco: Never Smokeless Tobacco: Never Tobacco Cessation:Counseling Given: Not Answered Comments No Sex and Gender Information Value Date Recorded Sex Assigned at Not on file Legal Sex Female 3:52 PM EDT Gender Identity Not on file Sexual Orientation Not on file Obstetrics History Last Filed Vital Signs Vital Sign Reading Time Taken Comments Blood Pressure - - Pulse - - Temperature - - Respiratory Rate - - Oxygen Saturation - - Inhaled Oxygen Concentration - - Weight 113.3 kg (249 lb 12.8 oz) 01/02/2024 9:39 AM EDT Height 175.3 cm (5' 9 ) 01/02/2024 9:39 AM EDT Body Mass Index 36.89 01/02/2024 9:39 AM EDT Plan of Treatment Health Maintenance Due Date Last Done Comments Annual Wellness Exam 1965 Hepatitis C Screening 1980 Cervical Cancer Screening 06/30/1983 Pap Smear 06/30/1983 HPV/Pap Cotest 1992 Breast Cancer Screening 2002 DTaP/TDaP/Td (1 - Tdap) 10/22/2002 10/21/2002 Cologuard 06/30/2007 Colon Cancer Screening 06/30/2007 Colonoscopy 06/30/2007 FIT 06/30/2007 Sigmoidoscopy 06/30/2007 Virtual Colonography 06/30/2007 Pneumococcal Vaccine 50+ (1 of 1 - PCV) 2012 Zoster (1 of 2) 2012 COVID-19 Vaccine (3 - 2023-2 5 season) 2023 04/12/2022, 04/22/2021 Influenza Vaccine (#1) 2024 Hepatitis B Vaccine Aged Out No longe r eligible based on patient's age to complete this topic Meningococcal B Vaccine Aged Out No l onger eligible based on patient's age to complete this topic Insurance [employer] [facility] [place] [address] [facility] [facility] [place] [address]
== END 2024-11-28 23:59 | disposition home or self-care (01) ==
LOC: RAD 11:18
PROVIDERS: PCP Nurse Practitioner; Visit Provider Orthopaedic Surgery
DX: M25.512 Pain in left shoulder (principal)
CPT/HCPCS: 73030

== ENCOUNTER 2025-03-12 10:34 | Outpatient (CLI) | payer OTHER, SELFPAY | END 2025-03-12 23:59 | disposition home or self-care (01) | LOC: LAB.DROPOF 03-14 10:34 | PROVIDERS: PCP Nurse Practitioner; Visit Provider Family Medicine | DX: R31.9 Hematuria, unspecified (principal); R10.9 Unspecified abdominal pain; R82.81 Pyuria | CPT/HCPCS: 87086 ==